=== PATIENT | female | born 1960 | race Caucasian/White ===

== ENCOUNTER 2022-04-19 12:55 | Emergency (ER) | payer MEDICAID, SELFPAY ==
--- NOTE | ~2022-04-19 | CT_ITS ---
CT head/brain wo IV con CLINICAL INFORMATION: Reason for Exam dizziness COMPARISON: No prior CT scan available for comparison. TECHNIQUE: Department standard protocol. This CT examination was performed using dose optimization techniques as appropriate, variously including the following: *Automated exposure control *Adjustment of mA and/or kV according to patient size (this includes techniques or standardized protocols for targeted exams where dose is matched to indication/reason for exam; i.e. extremities or head) *Use of iterative reconstruction technique DLP: 636 mGy-cm FINDINGS: CEREBRAL HEMISPHERES: There is no evidence of intra-axial or extra-axial mass, hemorrhage or acute infarct. BRAIN PARENCHYMA: Normal bryant-white matter differentiation. SUBDURAL SPACE: No bleed. BASAL GANGLIA AND PINEAL GLAND: Unremarkable VENTRICLES: Symmetric and normal in size. CEREBELLUM AND BRAINSTEM: No space-occupying mass, hemorrhage or acute infarct. CEREBELLOPONTINE ANGLES: No lesion found. ORBITS: No intraorbital mass. VESSELS: Unremarkable SKULL BASE: Unremarkable INCLUDED SINUSES AT SKULL BASE: Clear SKULL AND SKIN: No fracture or bone lesion found. CT/CT head/brain wo IV con IMPRESSION: No CT evidence of intracranial space-occupying mass, bleed or infarct. Normal CT scan does not rule out the possibility of hyperacute infarct in the first 12 hours. If patient symptoms persist may consider correlation with MRI, which is more sensitive for early acute infarct.
--- NOTE | 2022-04-19 12:59 | ECG_ITS ---
Test Reason : dizzy hx of afib Blood Pressure : / mmHG Vent. Rate : 069 BPM Atrial Rate : 069 BPM P-R Int : 134 ms QRS Dur : 090 ms QT Int : 396 ms P-R-T Axes : 000 -24 045 degrees QTc Int : 424 ms Normal sinus rhythm Cannot rule out Anterior infarct , age undetermined Precordial T wave inversions - consider ischemia Abnormal ECG No previous ECGs available Referred By: Generic ED Physician Electronically Signed By:Trace York
[2022-04-19 13:08] VITALS: BP 168/91; PULSE 70; RESP 18; TEMP 36.7; O2SAT 100; BMI 23.7
--- NOTE | 2022-04-19 13:44 | ED_ITS ---
HPI - Dizziness General Chief Complaint: Dizziness Stated Complaint: dizzy Time Seen by Provider: 04/19/22 13:44 Source: patient Mode of arrival: ambulatory Limitations: no limitations History of Present Illness HPI Narrative: 61 yo female with history of Sjogren's disease, Raymauds, migraines, HTN & vertigo presents to the ER for evaluation of lightheadedness that started 1 week ago. She reports feeling off kilter. She thought it was initially a mild version of vertigo and she did some vertigo exercises that made her nauseated. She called her doctor last week and they told her to come to the ER. No weakne ss, tingling, numbness, speech difficulty, headaches. MD elicited complaint: lightheadedness Pertinent past history: BPPV Onset (ago): week(s) (1) Timing: awoke with symptoms Severity: moderate Description: lightheadedness and off-balance Context: change in medication (newly on losartan x6 weeks ) Exacerbating factors: change in body position Relieving factors: nothing Associated symptoms: nausea Related Data Previous Rx's Medication Instructions Recorded meclizine 25 mg tablet 25 mg PO TID PRN dizziness #20 tabs 04/19/22 Allergies Allergy/AdvReac Type Severity Reaction Status Date / Time No Known Allergies Allergy Verified 04/19/22 13:10 Review of Systems Review of Systems: Yes all other systems are reviewed and are negative [facility] Social History Social History Advance Directives: No Advance Directives Information Provided: No Physical Exam Vital Signs: Vital Signs: Last Vital Signs Temp 98.0 F 04/19/22 13:08 Pulse 73 04/19/22 14:04 Resp 18 04/19/22 13:08 BP 150/86 H 04/19/22 14:04 Pulse Ox 100 04/19/22 13:08 O2 Del Method 04/19/22 13:08 BMI result Body Mass Index 23.7 Appearance: Alert. Oriented X3. No acute distress. Eyes: Pupils equal, round and reactive to light. ENT: Pharynx normal. Neck: Normal inspection. Neck supple. CVS: Normal heart rate and rhythm. Pulses normal. Respiratory: No respiratory distress. Breath sounds normal. Abdomen: Soft and nontender. +BS x4 Skin: Skin warm and dry. Normal skin color. Normal skin turgor. No rashes. Extremities: No lower extremity edema. Neuro: Oriented X 3. No motor deficit. No sensory deficit. CN II-XII intact. Normal finger to nose and heel to cagle bilaterally. Normal speech and cognition. Steady gait. Nonfocal Course Course Course Narrative: 61 yo female with history of Sjogren's, Raynauds, HTN, migraines and vertigo presenting with lightheadedness for 1 week. Neuro exam nonfocal. Not typical for vertigo. Doubt posterior stroke. Will get labs, EKG, trop, CT head for further evaluation. Reevaluation(s) Reevaluation #1: lab work unremarkable. CT head normal. Troponin negative. Or those negative. Blood pressure stable 150 systolic. Doubt her lightheadedness is due to her losartan. She would like to try treatment with meclizine. She will follow-up with her PCP this week. Stable for discharge home. Medications Administered Discontinued Medications Generic Name Dose Route Start Last Admin Trade Name Freq PRN Reason Stop Dose Admin Meclizine HCl 25 mg 04/19/22 15:19 04/19/22 15:31 Meclizine Hcl 25 Mg Tablet PO 04/19/22 15:20 25 mg ONCE ONE Administration Medical Decision Making Differential Diagnosis Differential Diagnoses: The differential diagnosis associated with the presentation includes Vertigo, dehydration, orthostatic hypotension, adverse medication effect, posterior stroke, anemia, metabolic derangement Admission/Observation Consideration of admission/observation: Escalation of care including admission/observation considered lightheadedness is mild, she does not have persistent dizziness to warrant admission Lab Data MDM Lab Attestation statement: I reviewed the patient's lab results. 04/19/22 13:59 04/19/22 13:59 Labs: Lab Results 04/19/22 04/19/22 04/19/22 Range/Units 13:59 13:59 13:59 WBC 4.3 L (4.8-10.8) X10*3/uL RBC 4.31 (4.20-5.50) X10*6/uL Hgb 12.7 (12.0-16.0) g/dl Hct 37.6 (37.0-47.0) % MCV 87.2 (80.0-98.0) fL MCH 29.5 (27.0-33.0) pg MCHC 33.8 (31.0-35.0) g/dl RDW 13.3 (11.0-16.0) % Plt Count 192 (160-400) X10*3/uL MPV 9.2 L (9.4-12.3) fL Immature Gran % (Auto) 0.2 (0.0-0.4) % Neut % (Auto) 54.9 (45-73) % Lymph % (Auto) 33.2 (20-40) % Sequoyah % (Auto) 9.0 (2-11) % Eos % (Auto) 1.8 (0-4) % Baso % (Auto) 0.9 (0-2) % Lymph # (Auto) 1.4 (1.2-4.9) X10*3/uL Sequoyah # (Auto) 0.4 (0.1-1.2) X10*3/uL Eos # (Auto) 0.1 (0.0-0.4) X10*3/uL Baso # (Auto) 0.0 (0.0-0.2) X10*3/uL Abs Immat Gran (auto) 0.01 (0.00-0.03) X10*3/uL Absolute Neuts (auto) 2.4 (2.0-8.3) x10*3/uL Absolute Nucleated RBC 0.000 (0.0-0.012) X10*3/uL Nucleated RBC % (auto) 0.0 (0.0-0.2) /100WBC Sodium 134 L (135-145) mmol/L Potassium 5.0 (3.3-5.1) mmol/L Chloride 106 (96-108) mmol/L Carbon Dioxide 22 (22-29) mmol/L Anion Gap 11 L (12-20) BUN 19 H (9-16) mg/dL Creatinine 0.75 (0.5-1.4) mg/dL Estim Creat Clear Calc 72.8 Estimated GFR > 60 Random Glucose 91 (60-115) mg/dL Calcium 8.9 (8.4-10.2) mg/dL Total Bilirubin 0.4 (0.0-1.0) mg/dL AST 24 (5-31) U/L ALT 24 (0-31) U/L Alkaline Phosphatase 66 (39-117) U/L Troponin I High Sens < 3.5 (<3.5-17.0) ng/L Total Protein 6.8 (6.5-8.0) g/dL Albumin 4.2 (3.5-5.0) g/dL COVID-19 (SHANNON) (Negative) COVID-19 Clin Com Influenza Type A (SAE) (Negative) Influenza Type B (SAE) (Negative) Influenza A & B Note 04/19/22 04/19/22 Range/Units 13:59 13:59 WBC (4.8-10.8) X10*3/uL RBC (4.20-5.50) X10*6/uL Hgb (12.0-16.0) g/dl Hct (37.0-47.0) % MCV (80.0-98.0) fL MCH (27.0-33.0) pg MCHC (31.0-35.0) g/dl RDW (11.0-16.0) % Plt Count (160-400) X10*3/uL MPV (9.4-12.3) fL Immature Gran % (Auto) (0.0-0.4) % Neut % (Auto) (45-73) % Lymph % (Auto) (20-40) % Sequoyah % (Auto) (2-11) % Eos % (Auto) (0-4) % Baso % (Auto) (0-2) % Lymph # (Auto) (1.2-4.9) X10*3/uL Sequoyah # (Auto) (0.1-1.2) X10*3/uL Eos # (Auto) (0.0-0.4) X10*3/uL Baso # (Auto) (0.0-0.2) X10*3/uL Abs Immat Gran (auto) (0.00-0.03) X10*3/uL Absolute Neuts (auto) (2.0-8.3) x10*3/uL Absolute Nucleated RBC (0.0-0.012) X10*3/uL Nucleated RBC % (auto) (0.0-0.2) /100WBC Sodium (135-145) mmol/L Potassium (3.3-5.1) mmol/L Chloride (96-108) mmol/L Carbon Dioxide (22-29) mmol/L Anion Gap (12-20) BUN (9-16) mg/dL Creatinine (0.5-1.4) mg/dL Estim Creat Clear Calc Estimated GFR Random Glucose (60-115) mg/dL Calcium (8.4-10.2) mg/dL Total Bilirubin (0.0-1.0) mg/dL AST (5-31) U/L ALT (0-31) U/L Alkaline Phosphatase (39-117) U/L Troponin I High Sens (<3.5-17.0) ng/L Total Protein (6.5-8.0) g/dL Albumin (3.5-5.0) g/dL COVID-19 (SHANNON) Negative (Negative) COVID-19 Clin Com See Note Influenza Type A (SAE) Negative (Negative) Influenza Type B (SAE) Negative (Negative) Influenza A & B Note See Note Independent Interpretation I performed an independent interpretation of an: EKG Interpretation: normal sinus rhythm, HR 69 bpm, t-wave inversions in leads III, V1 & V2. No ST segment elevations. Normal NV interval and QTc Radiology Impression Discussion of test interpretation with radiology: I have reviewed the radiologist's reading. Radiologist Impression: CT/CT head/brain wo IV con IMPRESSION: No CT evidence of intracranial space-occupying mass, bleed or infarct. Tests considered The following testing was considered but not selected: MRI brain - neuro intact, doubt posterior stroke Critical Care Time Critical Care Time Critical Care Time: No Discharge Plan Discharge Clinical Impression: Lightheadedness Patient Disposition: Home, Self-Care Instructions: Lightheadedness (ED) Additional Instructions: Your lab workup was unremarkable. Your CT scan was normal. Your cardiac enzyme was negative. You were negative for COVID and Flu. Recommend rest, make sure you are drinking plenty of water Take the prescribed medication as needed for dizziness. Follow up with your PCP next week. If you develop new or worsening symptoms call 911 or come back to the ER for further evaluation. Prescriptions: New meclizine 25 mg tablet 25 mg PO TID PRN (Reason: dizziness) Qty: 20 0RF Referrals: Jez Sepulveda MD [Primary Care Provider] - (lightheadedness) Interventions: ED Discharge Assessment Last Done: 04/19/22 15:38 Discharge Date/Time: 04/19/22 15:39
[2022-04-19 13:57] VITALS: BP 161/85; PULSE 67
[2022-04-19 14:03] VITALS: BP 160/83; PULSE 68
[2022-04-19 14:03] LABS: MANUAL DIFF FLAG NO
[2022-04-19 14:04] VITALS: BP 150/86; PULSE 73
[2022-04-19 14:06] LABS: Basophils Percent Auto 0.9 % (0-2); Eosinophils Absolute Auto 0.1 X10*3/uL (0.0-0.4); Eosinophils Percent Auto 1.8 % (0-4); Hematocrit 37.6 % (37.0-47.0); Hemoglobin 12.7 g/dl (12.0-16.0); Imm Gran Abs Auto 0.01 X10*3/uL (0.00-0.03); Imm Gran Pct Auto 0.2 % (0.0-0.4); Lymphocytes Absolute Auto 1.4 X10*3/uL (1.2-4.9); Lymphocytes Percent Auto 33.2 % (20-40); Mean Corpuscular HGB Conc 33.8 g/dl (31.0-35.0); Mean Corpuscular Hemoglobin 29.5 pg (27.0-33.0); Mean Corpuscular Volume 87.2 fL (80.0-98.0); Mean Platelet Volume 9.2 fL (9.4-12.3); Monocytes Absolute Auto 0.4 X10*3/uL (0.1-1.2); Neutrophils Absolute Auto 2.4 x10*3/uL (2.0-8.3); Neutrophils Percent Auto 54.9 % (45-73); Platelet Count 192 X10*3/uL (160-400); Red Blood Count 4.31 X10*6/uL (4.20-5.50); Red Cell Distribution Width 13.3 % (11.0-16.0); White Blood Count 4.3 X10*3/uL (4.8-10.8)
[2022-04-19 14:19] LABS: COVID-19 Test Negative (Negative); IDNOW Serial# 16C4AD1C
[2022-04-19 14:20] LABS: IDNOW Serial# BCCEAD1C; Influenza A Negative (Negative); Influenza B2 Negative (Negative)
--- OUTSIDE RECORDS SUMMARY | 2022-04-19 14:37 | XMS_ITS | Continuity of Care Document ---
:1960 Author Organization [facility] Address [address] [place] [address]- Care Team Providers Name Role Phone Jez Sepulveda MD Primary Care Physician Encounter [facility] Date(s): 02/26/21 - 03/28/[address] [address]- Allergies, Adverse Reactions, Alerts No Known Medication Allergies Immunizations Given and Recorded Vaccine Date Status Refusal Reason SARS-CoV-2 (COVID-19) mRNA-1273 vaccine 02/21/21 Recorded SARS-CoV-2 (COVID-19) mRNA BNT-162b2 vac 07/15/20 Recorde d SARS-CoV-2 (COVID-19) mRNA BNT-162b2 vac 06/24/20 Recorde d Medications FLUoxetine 20 mg oral capsule 20 mg, 1, capsule, By Mouth, Daily, # 90 capsule, Refills 1, Tot. Refills 1, Maintenance, 10/17/20 10:43:00 EDT, Route to Pharmacy Electronically, [facility]/pharmacy #[id number], Partial fill upon patient request if the prescription is for a schedule II opioid drKirti. Start Date: 10/17/20 Stop Date: 04/15/21 Status: Orderedlevothyroxine 0.025 mg oral tablet 1 tablet = 25 mcg, By Mouth, Daily, # 90 tablet, 3 Refills, Maintenance, 01/30/21 11:55:00 EST, Tablet, [id number], Partial fill upon patient request if the prescription is for a schedule II opioid drug., 167.5, cm, 01/16/21 14:29:00 EDT, Height Start Date: 01/30/21 Status: Orderedomeprazole 20 mg oral enteric coated capsule 1 capsule = 20 mg, By Mouth, Daily, before a meal, # 90 capsule, 1 Refills, Maintenance, 10/17/20 10:45:00 EDT, EC Capsule, [id number], Partial fill upon patient request if the prescription is for a schedule II opioid drug., 167, cm, 10/17/20... Start Date: 10/17/20 Stop Date: 04/15/21 Status: OrderedpredniSONE 10 mg oral tablet 1 tablet = 10 mg, By Mouth, Daily, # 10 tablet, 0 Refills, Maintenance, 08/29/20 8:26:00 EDT, Tablet, Partial fill upon patient request if the prescription is for a schedule II opioid drug. Start Date: 08/29/20 Status: OrderedrOPINIRole 0.25 mg oral tablet See Instructions, 1 tablet By Mouth daily for 2 days then increase to 2 tabs daily. Take 1-3 hours before bedtime, # 30 tablet, 1 Refills, Maintenance, 01/16/21 15:12:00 EDT, [id number], Partial fill upon patient request if the prescription i... Start Date: 01/16/21 Status: Orderedrosuvastatin 5 mg oral tablet 1 tablet = 5 mg, By Mouth, Daily, # 30 tablet, 0 Refills, Maintenance, 08/29/20 8:26:00 EDT, Tablet,Partial fill upon patient request if the prescription is for a schedule II opioid drug. Start Date: 08/29/20 Status: OrderedSUMAtriptan 50 mg oral tablet 1 tablet = 50 mg, By Mouth, Once, PRN as needed for migraine headache, may repeat dose after 2 hoursup to a maximum of 2 tabs in 24 hours, # 18 tablet, 1 Refills, Soft Stop, 01/16/21 15:09:00 EDT, Tablet, [id number], Partial fill upon patient... Start Date: 01/16/21 Status: OrderedVagifem 10 mcg vaginal tablet 1 tablet = 10 mcg, Vaginally, Daily at bedtime, Use nightly for two weeks intravaginally. Then nightly twice a week, # 30 tablet, 2 Refills, Maintenance, 11/15/20 14:27:00 EDT, [id number], Partial fill upon patient request if the prescription... Start Date: 11/15/20 Status: Ordered Problem List Condition Effective Dates Status Health Status Informant Chronic constipation(Confirmed) Active Chronic headaches(Confirmed) Active Macular erythematous rash(Confirmed) Active History of ovarian cyst(Confirmed) Active S/P parathyroidectomy(Confirmed) Active Hyperlipidemia(Confirmed) Active Osteopenia(Confirmed) Active Polymyalgia rheumatica(Confirmed) Active Raynauds syndrome(Confirmed) Active Restless legs syndrome(Confirmed) Active Sjogren's syndrome(Confirmed) Active Social History Social History Type Response Smoking Status Former smoker, quit more colleen n 30 days ago; Other: quit 2004; entered on: 10/17/20 Sex
--- OUTSIDE RECORDS SUMMARY | 2022-04-19 14:37 | XMS_ITS | Continuity of Care Document ---
:1960 Author Organization [facility] Endocrinology and D alysha Address [address] [place] [phone]- Care Team Providers Name Role Phone Not on Staff, PCP Primary Care Physician Unavailable Encounter [facility] Date(s): 07/10/20 - 08/09/20 [facility] [address] [place] [id number]
--- OUTSIDE RECORDS SUMMARY | 2022-04-19 14:37 | XMS_ITS | Continuity of Care Document ---
:1960 Author Organization [facility] Address [address] [place] [phone]- Care Team Providers Name Role Phone Coco PABLO, Jez Tucker Primary Care Physician Encounter [facility] Date(s): 09/25/21 - 10/25/21 [facility] [address] [place] [address] Allergies, Adverse Reactions, Alerts No Known Medication Allergies Immunizations Given and Recorded Vaccine Date Status Refusal Reason SARS-CoV-2 (COVID-19) mRNA-1273 vaccine 02/21/21 Recorded SARS-CoV-2 (COVID-19) mRNA BNT-162b2 vac 07/15/20 Recorde d SARS-CoV-2 (COVID-19) mRNA BNT-162b2 vac 06/24/20 Recorde d Medications fluocinonide 0.05% topical ointment APPLY TO TRUNK, ARMS, AND LEGS TWICE A DAY, AT BREAKFAST AND DINNER Start Date: 06/05/21 Status: OrderedFLUoxetine (Eqv-Prozac) 20 mg oral tablet 1.5 tablet = 30 mg, By Mouth, Daily, # 135 tablet, 1 Refills, Maintenance, 07/16/21 19:57:00 EDT, Tablet, [id number], Partial fill upon patient request if the prescription is for a schedule II opioid drug., 167.5, cm, 06/05/21 10:55:00 EDT, He... Start Date: 07/16/21 Status: Orderedlevothyroxine 0.025 mg oral tablet 1 tablet = 25 mcg, By Mouth, Daily, # 90 tablet, 3 Refills, Maintenance, 01/30/21 11:55:00 EST, Tablet, [id number], Partial fill upon patient request if the prescription is for a schedule II opioid drug., 167.5, cm, 01/16/21 14:29:00 EDT, Height Start Date: 01/30/21 Status: Orderedomeprazole 20 mg oral enteric coated capsule See Instructions, TAKE 1 CAPSULE BY MOUTH EVERY DAY BEFORE A MEAL, # 90 capsule, 0 Refills, [id number], 167.5, cm, 03/21/21 9:37:00 EST, Height Start Date: 04/09/21 Status: Orderedrosuvastatin 5 mg oral tablet 1 [...] Refills, Soft Stop, 01/16/21 15:09:00 EDT, Tablet, [facility]/pharmacy #[id number], Partial fill upon patient... Start Date: 01/16/21 Status: Ordered Problem List Condition Effective Dates [...]
--- OUTSIDE RECORDS SUMMARY | 2022-04-19 14:37 | XMS_ITS | Continuity of Care Document ---
:1960 Author Organization [facility] Endocrinology and D jaredbetes Address [address] [place] [phone]- Care Team Providers Name Role Phone Jez Sepulveda MD Primary Care Physician Encounter [facility] [place] Date(s): 01/28/21 - 02/27/21 [facility] Diabetes [address] [place] [phone]- Allergies, Adverse Reactions, Alerts No Known Medication Allergies Immunizations Given and Recorded Vaccine Date Status Refusal Reason SARS-CoV-2 (COVID-19) mRNA BNT-162b2 vac 07/15/20 Recorde d SARS-CoV-2 (COVID-19) mRNA BNT-162b2 vac 06/24/20 Recorde d Medications FLUoxetine 20 mg oral capsule 20 mg, 1, capsule, By Mouth, Daily, # 90 capsule, Refills 1, Tot. Refills 1, Maintenance, 10/17/20 10:43:00 EDT, Route to Pharmacy Electronically, [facility]/pharmacy #[id number], Partial fill upon patient request if [...] Informant Chronic constipation(Confirmed) Active Chronic headaches(Confirmed) Active History of ovarian cyst(Confirmed) Active S/P parathyroidectomy(Confirmed) Active Hyperlipidemia(Confirmed) Active Osteopenia(Confirmed) Active Polymyalgia rheumatica(Confirmed) Active Raynauds syndrome(Confirmed) Active Restless legs syndrome(Confirmed) Active Sjogren's syndrome(Confirmed) Active Social History Social History Type Response Smoking Status Former smoker, quit more colleen n 30 days ago; Other: quit 2004; entered on: 10/17/20 Sex
--- OUTSIDE RECORDS SUMMARY | 2022-04-19 14:37 | XMS_ITS | Continuity of Care Document ---
:1960 Author Organization [facility] Address [address] [place] [phone]- Care Team Providers Name Role Phone Jez Sepulveda MD Primary Care Physician Encounter [facility] [place] Date(s): 12/04/21 - 12/05/[address] [address]- Discharge Disposition: A-D/C Walkout Attending Physician: Not on Staff, Attending MD Admitting Physician: Not on Staff, Admitting MD Referring Physician: Not on Staff, Referring MD Allergies, Adverse Reactions, Alerts No Known Medication Allergies Immunizations Given and Recorded Vaccine Date Status Refusal Reason SARS-CoV-2 (COVID-19) mRNA-1273 vaccine 02/21/21 Recorded SARS-CoV-2 (COVID-19) mRNA BNT-162b2 vac 07/15/20 Recorde d SARS-CoV-2 (COVID-19) mRNA BNT-162b2 vac 06/24/20 Recorde d Medications fluocinonide 0.05% topical ointment APPLY TO TRUNK, ARMS, AND LEGS TWICE A DAY, AT BREAKFAST AND DINNER Start Date: 06/05/21 Status: OrderedFLUoxetine 20 mg oral capsule 1, capsule, By Mouth, Daily, # 90 capsule, Refills 1, Route to Pharmacy Electronically, [facility] STORE [id number], 167.5, cm, 06/05/21 10:55:00 EDT, Height Start Date: 10/31/21 Status: Orderedlevothyroxine 0.025 mg oral tablet 1 tablet = 25 mcg, By Mouth, Daily, # 90 tablet, 3 Refills, Maintenance, 01/30/21 11:55:00 EST, Tablet, [facility]/pharmacy #[id number], Partial fill upon patient request if the prescription is for a schedule II opioid drug., 167.5, cm, 01/16/21 14:29:00 EDT, Height Start Date: 01/30/21 Status: Orderedomeprazole 20 mg oral enteric coated capsule See Instructions, TAKE 1 CAPSULE BY MOUTH EVERY DAY BEFORE A MEAL, # 90 capsule, 0 Refills, [id number], 167.5, cm, 03/21/21 9:37:00 EST, Height Start [...] Refills, Soft Stop, 01/16/21 15:09:00 EDT, Tablet, [facility]/pharmacy #[id number], Partial fill upon patient... Start Date: 01/16/21 Status: Ordered Problem List Condition Effective Dates Status Health Status Informant Chronic constipation(Confirmed) Active Chronic headaches(Confirmed) Active Macular erythematous rash(Confirmed) Active History of ovarian cyst(Confirmed) Active S/P parathyroidectomy(Confirmed) Active Hyperlipidemia(Confirmed) Active Osteopenia(Confirmed) Active Polymyalgia rheumatica(Confirmed) Active Raynauds syndrome(Confirmed) Active Restless legs syndrome(Confirmed) Active Sjogren's syndrome(Confirmed) Active Vital Signs Most recent to oldest [Reference Range]: 1 2 Oxygen Saturation [94-100 %] 100 % 96 % (12/04/21 6:16 PM) (12/04/21 5:34 PM) Pulse Rate [55-90 bpm] 78 bpm 75 bpm (12/04/21 6:16 PM) (12/04/21 5:34 PM) Blood Pressure [90-138/55-84 mm Hg] 129/80 mm Hg (12/04/21 6:16 PM) Respiratory Rate [16-30 br/min] 19 br/min (12/04/21 6:16 PM) Temperature [96.8-100.4 DegF] 98.3 DegF (12/04/21 6:16 PM) Mode of Delivery (Oxygen) Room air (12/04/21 6:16 PM) Blood pressure sites Arm, right (12/04/21 6:16 PM) Social History Social History Type Response Smoking Status Former smoker, quit more colleen n 30 days ago; Other: quit 2004; entered on: 10/17/20 Sex Care Team PersonnelName: Coco PABLO, Jez Tucker Address: [address] [place] [address], [address]
--- OUTSIDE RECORDS SUMMARY | 2022-04-19 14:37 | XMS_ITS | Continuity of Care Document ---
:1960 Author Organization [facility] Address [address] [facility], [address] [address]- Care Team Providers Name Role Phone Jez Sepulveda MD Primary Care Physician Encounter 05/04/21 - 05/11/21 [facility] [address], [address] [address]- Attending Physician: Jez Sepulveda MD Admitting Physician: Jez Sepulveda MD Referring Physician: Jez Sepulveda MD Allergies, Adverse Reactions, Alerts No Known Medication Allergies Immunizations Given and Recorded Vaccine Date Status Refusal Reason SARS-CoV-2 (COVID-19) mRNA-1273 vaccine 02/21/21 Recorded SARS-CoV-2 (COVID-19) mRNA BNT-162b2 vac 07/15/20 Recorde d SARS-CoV-2 (COVID-19) mRNA BNT-162b2 vac 06/24/20 Recorde d Medications busPIRone 5 mg oral tablet 5 mg, 1, tablet, By Mouth, 2 times a day, # 30 tablet, Refills 0, Tot. Refills 0, Maintenance, 05/09/21 11:45:00 EST, Route to Pharmacy Electronically, [facility]/pharmacy #[id number], Partial fill upon patient request if the prescription is for a schedule II opio... Start Date: 05/09/21 Stop Date: 05/24/21 Status: OrderedFLUoxetine 20 mg oral capsule 1, capsule, By Mouth, Daily, # 90 capsule, Refills 1, Route to Pharmacy Electronically, [facility] STORE [id number], 167.5, cm, 05/02/21 9:13:00 EST, Height Start Date: 05/06/21 Status: Orderedlevothyroxine 0.025 mg oral tablet 1 [...] # 90 capsule, 0 Refills, [id number], 167.5, cm, 03/21/21 9:37:00 EST, Height Start Date: 04/09/21 Status: OrderedpredniSONE 5 mg oral tablet See Instructions, 3 tabs for 3 days then 2 tabs for 3 days and then 1 tab for 3 days with food or milk, # 18 tablet, 0 Refills, Maintenance, 04/18/21 9:10:00 EST, [id number], Partial fill upon patient request if the prescription is for a sche... Start Date: 04/18/21 Status: OrderedrOPINIRole 0.25 mg oral tablet See [...] tablet, 2 Refills, Maintenance, 11/15/20 14:27:00 EDT, [facility]/pharmacy #[id number], Partial fill upon patient request if the [...]
--- OUTSIDE RECORDS SUMMARY | 2022-04-19 14:37 | XMS_ITS | Continuity of Care Document ---
:1960 Author Organization [facility] Endocrinology [facility] D [facility] Address [address] [place] [id number]- Care Team Providers Name Role Phone Jez Sepulveda MD Primary Care Physician Encounter [facility] [place] Date(s): 01/28/21 - 02/27/21 [facility] End[facility]ology [facility] Diabetes [address] [place] [phone]- Allergies, Adverse Reactions, Alerts No Known Medication Allergies Immunizations Given and Recorded Vaccine Date Status Refusal Reason SARS-CoV-2 (COVID-19) mRNA BNT-162b2 vac 07/15/20 Recorde d SARS-CoV-2 (COVID-19) mRNA BNT-162b2 vac 06/24/20 Recorde d Medications FLUoxetine 20 mg oral capsule 20 mg, 1, capsule, By Mouth, Daily, # 90 capsule, Refills 1, Tot. Refills 1, Maintenance, 10/17/20 10:43:00 EDT, Route to Pharmacy Electronically, [facility]/pharmacy #[id number], Partial fill upon patient request [...]
--- OUTSIDE RECORDS SUMMARY | 2022-04-19 14:37 | XMS_ITS | Continuity of Care Document ---
:1960 Author Organization [facility] Address [address] [place] [id number]- Care Team Providers Name Role Phone Not on Staff, PCP Primary Care Physician Unavailable En[place] [facility] [place](s[place] 08/29/20 - 09/05/20 [facility] Endocrinology and Diabetes [address] [place] [id number] Attending Physician: Chelo Marquis MD Referring Physician: Not on Staff, Referring MD Allergies, Adverse Reactions, Alerts No Known Medication Allergies Medications predniSONE 10 mg oral tablet 1 tablet = 10 mg, By Mouth, Daily, # 10 tablet, 0 Refills, Maintenance, 08/29/20 8:26:00 EDT, Tablet, Partial fill upon patient request if the prescription is for a schedule II opioid drug. Start Date: 08/29/20 Status: Orderedrosuvastatin 5 mg oral tablet 1 tablet = 5 mg, By Mouth, Daily, # 30 tablet, 0 Refills, Maintenance, 08/29/20 8:26:00 EDT, Tablet,Partial fill upon patient request if the prescription is for a schedule II opioid drug. Start Date: 08/29/20 Status: Ordered Vital Signs Most recent to oldest [Reference Range]: 1 Height 167 cm (08/29/20 8:20 AM) Weight 69.9 kg (08/29/20 8:20 AM) Pulse Rate [55-90 bpm] 68 bpm (08/29/20 8:20 AM) Body Mass Index [18.5-24.99] 25.06 *H* (08/29/20 8:20 AM) Blood Pressure [90-138/55-84 mm Hg] 131/85 mm Hg (08/29/20 8:20 AM) Temperature [96.8-100.4 DegF] 96.8 DegF (08/29/20 8:20 AM) Blood pressure sites Arm, left (08/29/20 8:20 AM) Temperature Route Temporal (08/29/20 8:20 AM)
--- OUTSIDE RECORDS SUMMARY | 2022-04-19 14:37 | XMS_ITS | Continuity of Care Document ---
:1960 Author Organization [facility] D [facility] Address [address] [place] [phone]- Care Team Providers Name Role Phone Jez Sepulveda MD Primary Care Physician Encounter [facility] [place] Date(s): 02/21/21 - 03/23/21 [facility] Endocrinology and Diabetes [address] [place] [phone]- Allergies, Adverse Reactions, Alerts No Known Medication [...] 10/17/20 10:43:00 EDT, Route to Pharmacy Electronically, [facility]/pharmacy #[id number], Partial fill upon patient request [...]
--- OUTSIDE RECORDS SUMMARY | 2022-04-19 14:37 | XMS_ITS | Continuity of Care Document ---
:1960 Author Organization [facility] Endocrinology and D [facility] Address [address] [place] [phone]- Care Team Providers Name Role Phone Jez Sepulveda MD Primary Care Physician Encounter [facility] [place](s): 03/06/21 - 04/05/21 [facility] Endocrinology and Diabetes [address] [place] [phone]- Allergies, Adverse Reactions, Alerts No Known Medication [...] 10/17/20 10:43:00 EDT, Route to Pharmacy Electronically, [facility]/pharmacy #[id number], Partial fill upon patient request [...]
--- OUTSIDE RECORDS SUMMARY | 2022-04-19 14:37 | XMS_ITS | Continuity of Care Document ---
:1960 Author Organization [facility] Address [address] [place] [phone]- Care Team Providers Name Role Phone Jez Sepulveda MD Primary Care Physician Encounter [facility] [place] [id number] Date(s): 08/29/20 - 09/28/20 [facility] Endocrinology and Diabetes [address] [place] [id number] Attending Physician: Dougie Sandoval Admitting Physician: Admtr, Dougie Referring Physician: Admtr, [id number] Allergies, Adverse Reactions, Alerts No Known Medication [...]
[2022-04-19 14:50] LABS: Alanine Aminotransferase 24 U/L (0-31); Albumin Level 4.2 g/dL (3.5-5.0); Alkaline Phosphatase 66 U/L (39-117); Anion Gap 11 (12-20); Aspartate Amino Transferase 24 U/L (5-31); Bilirubin Total 0.4 mg/dL (0.0-1.0); Blood Urea Nitrogen 19 mg/dL (9-16); Calcium 8.9 mg/dL (8.4-10.2); Carbon Dioxide 22 mmol/L (22-29); Chloride 106 mmol/L (96-108); Creatinine Clr Calc Pharmacy 72.8; Estimated Glomerular Filt Rate > 60; Glucose Random 91 mg/dL (60-115); Sodium 134 mmol/L (135-145); Total Protein 6.8 g/dL (6.5-8.0)
[2022-04-19 15:00] LABS: Troponin-I High Sensitivity < 3.5 ng/L (<3.5-17.0)
[2022-04-19] MEDS: Meclizine HCl 25 MG TABLET PO (15:31)
== END 2022-04-19 15:39 | disposition home or self-care (01) ==
PROVIDERS: Physician Assistant; Emergency Provider Student in an Organized Health Care Education/Training Program; PCP Internal Medicine
DX: R42 Dizziness and giddiness (principal); I10 Essential (primary) hypertension; Z20.822 Contact with and (suspected) exposure to COVID-19
CPT/HCPCS: 36415; 70450; 80053; 84484; 85025; 87502; 87635; 93005; 99283; 99284